=== PATIENT | female | born 1935 | race Hispanic/Latino ===

== ENCOUNTER 2018-11-02 14:48 | Emergency (ER) | payer MEDICARE, OTHER ==
[2018-11-02 15:02] VITALS: BP 160/82; PULSE 90; RESP 16; TEMP 97.6; O2SAT 97
--- NOTE | 2018-11-02 16:02 | C.PDOC ---
History Of Present Illness 83 year old female presents to the ED [facility] for evaluation of abdominal pain. As per EMS, they were called to do a lift assist at the assisted living facility because the elevator broke down. When patient was transported down the stairs, she began complaining of abdominal pain which prompted ED visit. Patient initially told ED RN she had leg cramping but no abdominal pain. Patient then noted leg cramping was from lying down in bed. When asked by me, patient denied abdominal pain or leg cramping. Patient stated she has eczema. Time Seen by Provider: 11/02/18 14:56 Chief Complaint (Nursing): Lower Extremity Problem/Injury History Per: Patient, EMS History/Exam Limitations: no limitations Onset/Duration Of Symptoms: Mins Current Symptoms Are (Timing): Gone Past Medical History Reviewed: Historical Data, Nursing Documentation, Vital Signs Vital Signs: Last Vital Signs Temp 97.6 F 11/02/18 14:58 Pulse 90 11/02/18 14:58 Resp 16 11/02/18 14:58 BP 160/82 H 11/02/18 14:58 Pulse Ox 97 11/02/18 14:58 Primary Care Provider: Camilo Nassar - Medical History PMH: Arthritis, Diverticulitis, HTN, TIA Denies: Asthma, Chronic Kidney Disease Other Surgeries: Hx of surgeries Family History: States: No Known Family Hx - Social History Hx Tobacco Use: No Hx Alcohol Use: No Hx Substance Use: No - Immunization History Hx Tetanus Toxoid Vaccination: No Hx Influenza Vaccination: No Hx Pneumococcal Vaccination: No Review Of Systems Except As Marked, All Systems Reviewed And Found Negative. Constitutional: Negative for: Fever, Chills Respiratory: Negative for: Shortness of Breath Gastrointestinal: Positive for: Abdominal Pain. Negative for: Nausea, Vomiting, Diarrhea Physical Exam - Physical Exam Appears: Non-toxic, No Acute Distress Eye(s): bilateral: Normal Inspection Respiratory: Other (speaking full sentences, no respiratory distress ) Neurological/Psych: Oriented x3, Normal Speech Gait: With Assistance (walker) ED Course And Treatment O2 Sat by Pulse Oximetry: 97 (RA) Pulse Ox Interpretation: Normal Medical Decision Making Medical Decision Making: Patient refused physical examination. Patient seen ambulating to the bathroom with walker without difficulty. Patient has no physical complaints. Requests to be discharged. Disposition - Disposition Referrals: Camilo Nassar DO [[facility]] - Disposition: HOME/ ROUTINE Disposition Time: 16:00 Condition: STABLE Forms: [facility] ([place]), General Discharge Instructions - Clinical Impression Clinical Impression: Encounter for medical screening examination - Scribe Statement The provider has reviewed the documentation as recorded by the Scribe Gypsy Stinson All medical record entries made by the Scribe were at my direction and personally dictated by me. I have reviewed the chart and agree that the record accurately reflects my personal performance of the history, physical exam, medical decision making, and the department course for this patient. I have also personally directed, reviewed, and agree with the discharge instructions and disposition.
== END 2018-11-02 16:42 | disposition home or self-care (01) ==
LOC: C.ER 14:48
DX: Z13.89 Encounter for screening for other disorder (principal)